=== PATIENT | female | born 1950 | race African-American/Black ===

== ENCOUNTER → 2020-02-16 | Outpatient (CLI) | payer MEDICARE, OTHER ==
[2015-05-23 14:00] VITALS: BP 152/89
[~2020-02-16] MED LIST: AMLO10TA4 PO; LOSA1TAB22 PO
--- NOTE | 2020-02-16 11:17 | RAD ---
CHEST PA LATERAL History: Cough Comparison: None. Findings: 2 views of the chest are submitted. Their is mild linear opacity at the left lung base. There is no dependent pleural fluid or pneumothorax. Cardiac silhouette is considered within normal limits. There is mid thoracic spondylosis. Impression: 1. There is mild left base linear opacity, atelectasis considered more likely than infiltrate. Electronically signed by: Giovanni Monroy MD (02/16/2020 11:14 AM) [id number]
== END | disposition home or self-care (01) ==
LOC: RAD 10:56
PROVIDERS: ATTEND Family Medicine
DX: J98.4 Other disorders of lung (principal); M47.814 Spondylosis without myelopathy or radiculopathy, thoracic region
CPT/HCPCS: 71046

== ENCOUNTER → 2020-04-27 | Outpatient (CLI) | payer OTHER ==
[2015-05-23 14:00] VITALS: BP 152/89
--- NOTE | 2020-04-27 15:44 | RAD ---
PQRS Compliance Statement: One or more of the following individualized dose reduction techniques were utilized for this examination: 1. Automated exposure control 2. Adjustment of the mA and/or kV according to patient size 3. Use of iterative reconstruction technique CT HEAD WITHOUT CONTRAST History: Reason: HEADACHES, DOUBLE VISION / Spl. Instructions: / History: Comparison: None. Technique: Axial images are obtained of the head from the skull base through the vertex without IV contrast. Findings: No mass-effect, midline shift, extra-axial fluid collection, hemorrhage, or obvious acute infarction is identified. Basilar cisterns are patent. The ventricles and sulci are prominent, consistent with age-related cerebral atrophy. Ventricles out of proportion to sulci may reflect central atrophy. There is moderate periventricular white matter hypoattenuation. This is a nonspecific finding but is commonly due to chronic small vessel ischemic disease. Bone windows demonstrate no acute calvarial abnormality. Moderate mucosal thickening right ethmoid sinus. The maxillary sinuses are not imaged. Mastoid air cells are well aerated. IMPRESSION: 1. No acute intracranial abnormality. 2. Moderate periventricular white matter changes probably due to chronic small vessel ischemic disease. Electronically signed by: Duran Grayson MD (04/27/2020 3:41 PM) [id number]
== END ==
LOC: PMG 15:16
PROVIDERS: ATTEND Physician Assistant
DX: H53.2 Diplopia (principal); R51 Headache
CPT/HCPCS: 70450

== ENCOUNTER → 2020-05-12 | Outpatient (CLI) | payer MEDICARE ==
[2015-05-23 14:00] VITALS: BP 152/89
--- NOTE | 2020-05-12 16:45 | RAD ---
INDICATION: Reason: TIA / Spl. Instructions: / History: COMPARISON: None. TECHNIQUE: Color, grayscale and doppler ultrasound images obtained of the carotid system bilaterally. Percent stenosis is estimated using criteria that correlates with NASCET methodology. FINDINGS: Peak systolic velocities are as follows in cm/s: Right Carotid System: CCA: 65 ICA: 84 ICA/CCA Ratio 1.3 Left Carotid System: CCA: 58 ICA: 87 ICA/CCA Ratio 1.5 Vertebral arteries are antegrade bilaterally. Mild scattered plaque. IMPRESSION: * No hemodynamically significant stenosis of the internal carotid arteries bilaterally. Electronically signed by: Aayush Abdullahi MD (05/12/2020 4:42 PM) [id number]
== END | disposition home or self-care (01) ==
LOC: US 12:39
DX: G45.9 Transient cerebral ischemic attack, unspecified (principal)
CPT/HCPCS: 93880